=== PATIENT | female | born 1965 | race African-American/Black ===

== ENCOUNTER 2018-04-04 17:38 | Inpatient (IN) | payer MEDICAID ==
[~2018-04-04] VITALS: Ht 170.2 cm; Wt 185.8 kg
[2018-04-04 11:30] VITALS: BP 125/71
[~2018-04-04 17:38] MED LIST: CARI-316; CITA-77; FER325T OR; HYDR-1421; LISI-206; METF-370 PO; TRAZ50TA2 PO
[2018-04-04] MEDS ORDERED: methylPREDNISolone SOD SUCC 125 MG/2 ML VL IV ONE (19:45)
[2018-04-04] MEDS ORDERED: HYDROcodone-ACET 10/325MG TAB PO ONE (19:45)
[2018-04-04] MEDS ORDERED: IPRATROPIUM BROM 0.5 MG/2.5ML INH SOL NEB ONE (19:45)
[2018-04-04] MEDS ORDERED: LORazepam 2MG/ML-1ML VIAL IV ONE (19:45)
[2018-04-04] MEDS ORDERED: ALBUTEROL SULF 2.5 MG/0.5ML(0.5%) NEB SOLN NEB ONE (19:45)
[2018-04-04 19:47] LABS: Basophils # (auto) 0.1 uL; Hemoglobin 12.4 g/dL (12.2-16.2); Lymphocytes # (auto) 1.5 uL; Mean Corpuscular Hemoglobin 23.9 pg (28.0-32.0)
[2018-04-04 19:49] LABS: Basophils % (auto) 1.3 % (0.0-2.0); Eosinophils # (auto) 0.2 uL; Eosinophils % (auto) 2.8 % (0.0-7.0); Lymphocytes % (auto) 23.8 % (10.0-50.0); Mean Corpuscular Volume 77.1 fL (80.0-100.0); Monocytes # (auto) 0.2 uL; Monocytes % (auto) 3.9 % (0.0-12.0); Neutrophils # (auto) 4.2 uL; Neutrophils % (auto) 68.2 % (37.0-80.0); Nucleated Red Blood Cells % 0.1 %; Platelet Count (auto) 287 10^3/uL (140-450); Red Blood Cells 5.18 10^6/uL (4.0-5.20); Red Cell Distribution Width 18.7 % (11.8-14.3); White Blood Cell 6.2 10^3/uL (4.4-10.8)
[2018-04-04 20:04] LABS: Alanine Aminotransferase 19 U/L (13-56); Albumin 3.3 g/dL (3.4-5.0); Alkaline Phosphatase 85 U/L (45-117); Anion Gap 9 (5-15); Aspartate Aminotransferase 13 U/L (15-37); BUN/Creatinine Ratio 11.8; Bilirubin, Total 0.4 mg/dL (0.2-1.0); Blood Urea Nitrogen 10 mg/dL (7-18); Calcium 8.8 mg/dL (8.5-10.1); Carbon Dioxide 26 mmol/L (21-32); Chloride 104 mmol/L (98-107); GFR African American 90 mL/min; GFR Non-African American 75 mL/min; Glucose 153 mg/dL (74-106); Sodium 139 mmol/L (136-145); Total Protein 8.1 g/dL (6.4-8.2)
[2018-04-04] MEDS ORDERED: LEVOFLOXACIN 750MG 150 ML IV ONE (21:00)
[2018-04-04] MEDS ORDERED: IPRATROPIUM BROM 0.5 MG/2.5ML INH SOL NEB PRN (21:30)
[2018-04-04] MEDS ORDERED: DOCUSATE SOD 100 MG CAP PO PRN (21:30)
[2018-04-04] MEDS ORDERED: FUROSEMIDE 20 MG/2 ML VIAL IV ONE (21:30)
[2018-04-04] MEDS ORDERED: ONDANSETRON HCL 4 MG/2 ML VIAL IV PRN (21:30)
[2018-04-04] MEDS ORDERED: ACETAMINOPHEN 325 MG TAB PO PRN (21:30)
[2018-04-04] MEDS ORDERED: ALBUTEROL SULF 2.5 MG/0.5ML(0.5%) NEB SOLN NEB PRN (21:30)
[2018-04-04] MEDS ORDERED: DEXTROSE (50%) 50ML SYRG IV PRN (21:30)
[2018-04-04] MEDS ORDERED: TEMAZEPAM 15 MG CAP PO PRN (21:30)
[2018-04-04] MEDS ORDERED: ENOXAPARIN SOD 40 MG/0.4 ML SYRINGE SC SCH (21:37)
[2018-04-04] MEDS: FAMOTIDINE 20 MG TAB PO SCH (22:00)
[2018-04-05] VITALS (8 sets, daily range): BP systolic 125–170; BP diastolic 71–96
[2018-04-05] MEDS: ACCU-CHEK COMFORT CURVE STRIP VI SCH ×3 (00:18→12:00)
[2018-04-05] MEDS: HYDROcodone-ACET 5/325MG TAB PO PRN ×2 (00:19→05:53)
[2018-04-05] MEDS: InsuLIN REG 1unit/0.01ml Soln (100units/ml) SC SCH ×3 (00:43→12:00)
[2018-04-05] MEDS ORDERED: LORazepam 0.5 MG TAB PO ONE ×3 (02:45→09:15)
[2018-04-05] MEDS: cloNIDine HCL 0.1 MG TAB PO PRN ×2 (05:17→14:20)
[2018-04-05 06:34] LABS: Basophils # (auto) 0 uL; Eosinophils # (auto) 0 uL; Lymphocytes # (auto) 0.4 uL; Monocytes # (auto) 0 uL; Red Cell Distribution Width 18.8 % (11.8-14.3)
[2018-04-05 06:36] LABS: Hematocrit 41.2 % (36.0-46.0); Hemoglobin 12.8 g/dL (12.2-16.2); Lymphocytes % (auto) 8.6 % (10.0-50.0); Mean Corpuscular Hemoglobin 24.1 pg (28.0-32.0); Mean Corpuscular Hgb Conc. 31.2 g/dL (32.0-36.0); Mean Corpuscular Volume 77.4 fL (80.0-100.0); Monocytes % (auto) 0.7 % (0.0-12.0); Neutrophils # (auto) 4.1 uL; Neutrophils % (auto) 89.7 % (37.0-80.0); Nucleated Red Blood Cells % 0.1 %; Platelet Count (auto) 274 10^3/uL (140-450); Red Blood Cells 5.32 10^6/uL (4.0-5.20); White Blood Cell 4.6 10^3/uL (4.4-10.8)
[2018-04-05 07:01] LABS: Potassium 4.3 mmol/L (3.5-5.1)
[2018-04-05 07:16] LABS: Albumin 3.4 g/dL (3.4-5.0); Calcium 9.6 mg/dL (8.5-10.1)
[2018-04-05 07:19] LABS: Bilirubin, Total 0.3 mg/dL (0.2-1.0); Total Protein 8.7 g/dL (6.4-8.2)
[2018-04-05] MEDS ORDERED: OPTISON 3ml Vial for INJ IV ONE (08:45)
[2018-04-05] MEDS ORDERED: ENOXAPARIN SOD 40 MG/0.4 ML SYRINGE SC SCH (10:00)
[2018-04-05] MEDS ORDERED: LISINOPRIL 10 MG TAB PO SCH (10:00)
[2018-04-05] MEDS ORDERED: FUROSEMIDE 40 MG TAB PO SCH (10:00)
[2018-04-05] MEDS ORDERED: CITALOPRAM HYDROBR 20 MG TAB PO SCH (10:00)
[2018-04-05] MEDS ORDERED: LEVOFLOXACIN 750MG 150 ML IV SCH (10:00)
[2018-04-05] MEDS: FAMOTIDINE 20 MG TAB PO SCH (10:17)
[2018-04-05] MEDS ORDERED: LEVO500T21 PO (17:00)
== END 2018-04-05 18:11 | disposition home or self-care (01) | DRG 139 ==
LOC: EDBD 17:38 → ER 17:39 → OVERFLOW 17:40 → WEST WING 22:54
PROVIDERS: ADMIT Nurse Practitioner; ATTEND Internal Medicine
DX: J18.1 Lobar pneumonia, unspecified organism (principal); D68.69 Other thrombophilia; Z68.44 Body mass index [BMI] 60.0-69.9, adult; J44.0 Chronic obstructive pulmonary disease with (acute) lower respiratory infection; I11.0 Hypertensive heart disease with heart failure; I50.32 Chronic diastolic (congestive) heart failure; E66.01 Morbid (severe) obesity due to excess calories; E11.9 Type 2 diabetes mellitus without complications; D50.9 Iron deficiency anemia, unspecified; F32.9 Major depressive disorder, single episode, unspecified; F41.9 Anxiety disorder, unspecified; K44.9 Diaphragmatic hernia without obstruction or gangrene; G47.00 Insomnia, unspecified; K59.00 Constipation, unspecified; J44.1 Chronic obstructive pulmonary disease with (acute) exacerbation; F17.210 Nicotine dependence, cigarettes, uncomplicated; Z80.42 Family history of malignant neoplasm of prostate; Z82.49 Family history of ischemic heart disease and other diseases of the circulatory system; Z83.3 Family history of diabetes mellitus; Z88.5 Allergy status to narcotic agent; Z79.899 Other long term (current) drug therapy
CPT/HCPCS: 36415; 71045; 80053; 82962; 83880; 84484; 85025; 85379; 87040; 87081; 93005; 93306; 94640; 96365; 96375; J1815; J1956; Q9956

== ENCOUNTER 2019-07-23 13:09 | Emergency (ER) | payer MEDICAID ==
[~2019-07-23] VITALS: Ht 170.2 cm; Wt 172.4 kg
[~2019-07-23 13:09] MED LIST changes: +ALBUAER3 IN; -CARI-316; +CARI350T22; +LEVO500T21 PO; -LISI-206; +LISI-710; +PRED-559 PO; +TAMIFLU PO
[2019-07-23 14:04] LABS: Basophils # (auto) 0 uL; Basophils % (auto) 0.4 % (0.0-2.0); Eosinophils # (auto) 0.2 uL; Eosinophils % (auto) 2.2 % (0.0-7.0); Hemoglobin 13.5 g/dL (12.2-16.2); Lymphocytes # (auto) 1.5 uL; Lymphocytes % (auto) 21.4 % (10.0-50.0); Mean Corpuscular Hgb Conc. 32.1 g/dL (32.0-36.0); Mean Corpuscular Volume 84.1 fL (80.0-100.0); Monocytes # (auto) 0.3 uL; Monocytes % (auto) 4.3 % (0.0-12.0); Neutrophils # (auto) 4.9 uL; Neutrophils % (auto) 71.7 % (37.0-80.0); Platelet Count (auto) 217 10^3/uL (140-450); Red Cell Distribution Width 17.2 % (11.8-14.3); White Blood Cell 6.8 10^3/uL (4.4-10.8)
[2019-07-23 14:21] LABS: Alanine Aminotransferase 16 U/L (13-56); Albumin 3.1 g/dL (3.4-5.0); Anion Gap 6 (5-15); Aspartate Aminotransferase 12 U/L (15-37); BUN/Creatinine Ratio 10.6; Blood Urea Nitrogen 9 mg/dL (7-18); Calcium 8.8 mg/dL (8.5-10.1); Carbon Dioxide 27 mmol/L (21-32); Chloride 104 mmol/L (98-107); GFR African American 90 mL/min; GFR Non-African American 74 mL/min; Glucose 171 mg/dL (74-106); Potassium 3.7 mmol/L (3.5-5.1); Sodium 137 mmol/L (136-145)
[2019-07-23 14:26] LABS: Alkaline Phosphatase 74 U/L (45-117); Bilirubin, Total 0.4 mg/dL (0.2-1.0); Total Protein 7.3 g/dL (6.4-8.2)
[2019-07-23] MEDS ORDERED: HYDROmorphone HCL 2 MG/ML VL IV ONE (20:00)
[2019-07-23] MEDS ORDERED: ONDANSETRON HCL 4 MG/2 ML VIAL IV ONE (20:00)
[2019-07-23 20:01] VITALS: BP 135/72
[2019-07-23 20:42] LABS: Urine Bacteria NONE SEEN /hpf (None Seen); Urine Blood Negative /uL (Negative); Urine Mucus FEW (None Seen); Urine Specific Gravity 1.026 (1.001-1.035); Urine WBC 2 /hpf (0 - 5)
== END 2019-07-24 00:04 | disposition home or self-care (01) ==
LOC: ER 13:12
DX: S16.1XXA Strain of muscle, fascia and tendon at neck level, initial encounter (principal); S39.012A Strain of muscle, fascia and tendon of lower back, initial encounter; S00.03XA Contusion of scalp, initial encounter; R07.89 Other chest pain; M19.90 Unspecified osteoarthritis, unspecified site; R42 Dizziness and giddiness; J44.9 Chronic obstructive pulmonary disease, unspecified; E11.9 Type 2 diabetes mellitus without complications; I10 Essential (primary) hypertension; F17.210 Nicotine dependence, cigarettes, uncomplicated; Z91.81 History of falling; W01.0XXA Fall on same level from slipping, tripping and stumbling without subsequent striking against object, initial encounter; Y93.01 Activity, walking, marching and hiking; Y92.89 Other specified places as the place of occurrence of the external cause; Y99.8 Other external cause status
CPT/HCPCS: 36415; 70450; 72125; 72131; 73562; 80053; 81001; 83735; 84484; 85025; 93005; 96374; 96375; 99284; J1170; J2405

== ENCOUNTER 2019-08-30 21:59 | Emergency (ER) | payer MEDICAID ==
[~2019-08-30] VITALS: Ht 170.2 cm; Wt 172.4 kg
[2019-08-31] MEDS ORDERED: LIDOCAINE W/ EPINEPHRINE 2% INJ 20ML VIAL ONE (01:38)
[2019-08-31] MEDS ORDERED: DexAMETHasone SOD PHOS 10MG/1ML VIAL INJ IM ONE (01:45)
[2019-08-31] MEDS ORDERED: cefTRIAXone SOD 1,000 MG VL IM ONE (01:45)
[2019-08-31] MEDS ORDERED: LIDOCAINE W/ EPINEPHRINE 2% INJ 20ML VIAL IJ ONE (01:45)
[2019-08-31] MEDS ORDERED: LORazepam 0.5 MG TAB PO ONE (02:00)
[2019-08-31 02:13] VITALS: BP 104/59
== END 2019-08-31 02:30 | disposition home or self-care (01) ==
LOC: ER 22:03
DX: L02.214 Cutaneous abscess of groin (principal); J44.9 Chronic obstructive pulmonary disease, unspecified; E11.9 Type 2 diabetes mellitus without complications; I10 Essential (primary) hypertension; Z79.899 Other long term (current) drug therapy
CPT/HCPCS: 96372; 99283; J0696; J1100

== ENCOUNTER → 2020-03-15 | Emergency (ER) | payer MEDICAID ==
[~2020-03-15] VITALS: Ht 172.7 cm; Wt 163.3 kg
[~2020-03-15] MED LIST changes: +ALBU0.084 IN; +ALBU108A5 IN; -ALBUAER3 IN; +CARB25TA75 PO; -CARI350T22; -CITA-77; +CLINDAMYCIN 600MG IV 50 ML IV ONE; -FER325T OR; +FUROSEMIDE 20 MG/2 ML VIAL ONE; +FUROSEMIDE 40 MG/4 ML VIAL IV ONE; -HYDR-1421; +INSU1INJ19 SC; +IPR002IS NEB; -LEVO500T21 PO; +LEVO750T2 PO; +LISI-285 PO; -LISI-710; -METF-370 PO; +MORP1TAB14 PO; +NEBUMIS40 XX; +PHEN15CA PO; +PIPERACILLIN-TAZOB 3.375GM 100 ML IV ONE; +POTA-220 PO; +POTASSIUM CHLORIDE 8 MEQ TAB PO ONE; -PRED-559 PO; +PRED20TA2 PO; +SEMA2INJ2 SC; -TAMIFLU PO; +TOPI25TA32 PO; +TRAZ-184 PO; -TRAZ50TA2 PO
[2020-03-15 10:29] LABS: Basophils # (auto) 0.1 10 ^3/uL (0-0.2); Basophils % (auto) 1.3 % (0.0-2.0); Eosinophils # (auto) 0.2 10 ^3/uL (0-0.8); Hematocrit 42.4 % (36.0-46.0); Hemoglobin 13.5 g/dL (12.2-16.2); Lymphocytes % (auto) 20.1 % (10.0-50.0); Mean Corpuscular Hemoglobin 27.4 pg (28.0-32.0); Mean Corpuscular Hgb Conc. 31.8 g/dL (32.0-36.0); Mean Corpuscular Volume 86.2 fL (80.0-100.0); Monocytes # (auto) 0.3 10 ^3/uL (0-1.3); Monocytes % (auto) 4.9 % (0.0-12.0); Neutrophils # (auto) 3.7 10 ^3/uL (1.6-8.6); Neutrophils % (auto) 70.7 % (37.0-80.0); Nucleated Red Blood Cells % 0.1 %; Platelet Count (auto) 236 10^3/uL (140-450); Red Blood Cells 4.92 10^6/uL (4.0-5.20); Red Cell Distribution Width 16.4 % (11.8-14.3); White Blood Cell 5.2 10^3/uL (4.4-10.8)
[2020-03-15 10:50] LABS: Calcium 8.7 mg/dL (8.5-10.1); Potassium 4.4 mmol/L (3.5-5.1)
[2020-03-15 10:53] LABS: BUN/Creatinine Ratio 11.7; Bilirubin, Total 0.4 mg/dL (0.2-1.0); Total Protein 7.5 g/dL (6.4-8.2)
[2020-03-15 12:45] VITALS: BP 131/77
== END | disposition home or self-care (01) ==
LOC: ER 09:42
DX: L03.116 Cellulitis of left lower limb (principal); K44.9 Diaphragmatic hernia without obstruction or gangrene; E46 Unspecified protein-calorie malnutrition; Z68.43 Body mass index [BMI] 50.0-59.9, adult; J44.9 Chronic obstructive pulmonary disease, unspecified; I50.9 Heart failure, unspecified; E11.9 Type 2 diabetes mellitus without complications; I25.10 Atherosclerotic heart disease of native coronary artery without angina pectoris; E78.5 Hyperlipidemia, unspecified; Z87.891 Personal history of nicotine dependence; Z79.2 Long term (current) use of antibiotics; Z79.899 Other long term (current) drug therapy
CPT/HCPCS: 36415; 71045; 80053; 83880; 85025; 93970; 96365; 96366; 96367; 96375; 99285; J1940; J2543; J3490

== ENCOUNTER → 2020-03-23 | Emergency (ER) | payer MEDICAID ==
[~2020-03-23] VITALS: Ht 172.7 cm; Wt 167.8 kg
[~2020-03-23] MED LIST changes: -CARB25TA75 PO; -CLINDAMYCIN 600MG IV 50 ML IV ONE; -FUROSEMIDE 20 MG/2 ML VIAL ONE; -FUROSEMIDE 40 MG/4 ML VIAL IV ONE; -LISI-285 PO; -PIPERACILLIN-TAZOB 3.375GM 100 ML IV ONE; -POTASSIUM CHLORIDE 8 MEQ TAB PO ONE
[2020-03-23 11:48] VITALS: BP 144/70
[2020-03-23 12:38] LABS: Basophils # (auto) 0.1 10 ^3/uL (0-0.2); Eosinophils # (auto) 0.2 10 ^3/uL (0-0.8); Hemoglobin 13.3 g/dL (12.2-16.2); Lymphocytes # (auto) 1.1 10 ^3/uL (0.4-5.4); Mean Corpuscular Hemoglobin 26.9 pg (28.0-32.0); Neutrophils # (auto) 3.1 10 ^3/uL (1.6-8.6)
[2020-03-23 12:39] LABS: Basophils % (auto) 1.4 % (0.0-2.0); Eosinophils % (auto) 3.4 % (0.0-7.0); Hematocrit 42.6 % (36.0-46.0); Lymphocytes % (auto) 23.6 % (10.0-50.0); Mean Corpuscular Hgb Conc. 31.3 g/dL (32.0-36.0); Mean Corpuscular Volume 86.1 fL (80.0-100.0); Monocytes # (auto) 0.2 10 ^3/uL (0-1.3); Monocytes % (auto) 4.7 % (0.0-12.0); Neutrophils % (auto) 66.9 % (37.0-80.0); Platelet Count (auto) 217 10^3/uL (140-450); Red Blood Cells 4.95 10^6/uL (4.0-5.20); Red Cell Distribution Width 16.5 % (11.8-14.3); White Blood Cell 4.6 10^3/uL (4.4-10.8)
[2020-03-23 12:46] LABS: Anion Gap 6 (5-15); Blood Urea Nitrogen 10 mg/dL (7-18); Calcium 8.5 mg/dL (8.5-10.1); Carbon Dioxide 28 mmol/L (21-32); Chloride 106 mmol/L (98-107); Glucose 151 mg/dL (74-106); Potassium 3.9 mmol/L (3.5-5.1); Sodium 140 mmol/L (136-145)
[2020-03-23 12:48] LABS: INR 1.01 (0.9-1.15); Partial Thromboplastin Time 29.8 sec (23.64-32.05)
[2020-03-23 12:52] LABS: Alanine Aminotransferase 18 U/L (13-56); Alkaline Phosphatase 87 U/L (45-117); Aspartate Aminotransferase 11 U/L (15-37); BUN/Creatinine Ratio 11.6; Bilirubin, Total 0.4 mg/dL (0.2-1.0); GFR African American 88 mL/min; GFR Non-African American 73 mL/min; Total Protein 7.2 g/dL (6.4-8.2)
== END | disposition home or self-care (01) ==
LOC: ER 11:22
DX: I50.9 Heart failure, unspecified (principal); D53.9 Nutritional anemia, unspecified; F41.9 Anxiety disorder, unspecified; L03.115 Cellulitis of right lower limb; L03.116 Cellulitis of left lower limb; I25.10 Atherosclerotic heart disease of native coronary artery without angina pectoris; J44.9 Chronic obstructive pulmonary disease, unspecified; E11.9 Type 2 diabetes mellitus without complications; E78.5 Hyperlipidemia, unspecified; Z87.891 Personal history of nicotine dependence; Z88.8 Allergy status to other drugs, medicaments and biological substances; Z79.4 Long term (current) use of insulin; Z79.2 Long term (current) use of antibiotics; Z79.899 Other long term (current) drug therapy
CPT/HCPCS: 36415; 80053; 83880; 84484; 85025; 85379; 85610; 85730

== ENCOUNTER 2020-04-06 08:00 | Emergency (ER) | payer MEDICAID ==
[~2020-04-06] VITALS: Ht 172.7 cm; Wt 174.6 kg
[~2020-04-06 08:00] MED LIST changes: -LEVO750T2 PO; +LEVO750T8 PO
[2020-04-06] MEDS ORDERED: FUROSEMIDE 40 MG/4 ML VIAL IV ONE (08:15)
[2020-04-06 08:44] LABS: Basophils # (auto) 0 10 ^3/uL (0-0.2); Basophils % (auto) 0.4 % (0.0-2.0); Eosinophils # (auto) 0.1 10 ^3/uL (0-0.8); Eosinophils % (auto) 2.8 % (0.0-7.0); Hematocrit 41.6 % (36.0-46.0); Hemoglobin 13.2 g/dL (12.2-16.2); Lymphocytes # (auto) 1.1 10 ^3/uL (0.4-5.4); Lymphocytes % (auto) 20.7 % (10.0-50.0); Mean Corpuscular Hemoglobin 27.3 pg (28.0-32.0); Mean Corpuscular Hgb Conc. 31.9 g/dL (32.0-36.0); Mean Corpuscular Volume 85.7 fL (80.0-100.0); Monocytes # (auto) 0.2 10 ^3/uL (0-1.3); Monocytes % (auto) 4.1 % (0.0-12.0); Neutrophils # (auto) 3.9 10 ^3/uL (1.6-8.6); Platelet Count (auto) 208 10^3/uL (140-450); Red Blood Cells 4.85 10^6/uL (4.0-5.20); Red Cell Distribution Width 16.2 % (11.8-14.3); White Blood Cell 5.4 10^3/uL (4.4-10.8)
[2020-04-06 09:00] LABS: INR 1.01 (0.9-1.15); Partial Thromboplastin Time 29.4 sec (23.64-32.05)
[2020-04-06 09:03] LABS: Albumin 3.2 g/dL (3.4-5.0); Anion Gap 3 (5-15); Blood Urea Nitrogen 12 mg/dL (7-18); Calcium 8.6 mg/dL (8.5-10.1); Carbon Dioxide 29 mmol/L (21-32); Chloride 106 mmol/L (98-107); Glucose 156 mg/dL (74-106); Potassium 3.9 mmol/L (3.5-5.1); Sodium 138 mmol/L (136-145)
[2020-04-06 09:08] LABS: Alanine Aminotransferase 17 U/L (13-56); Alkaline Phosphatase 78 U/L (45-117); Aspartate Aminotransferase 13 U/L (15-37); BUN/Creatinine Ratio 14.6; Bilirubin, Total 0.4 mg/dL (0.2-1.0); GFR African American 93 mL/min; GFR Non-African American 77 mL/min; Total Protein 7.5 g/dL (6.4-8.2)
[2020-04-06] MEDS ORDERED: FLUCONAZOLE 100 MG TAB PO ONE (10:00)
[2020-04-06 10:49] LABS: Urine Bacteria NONE SEEN /hpf (None Seen); Urine Blood Negative /uL (Negative); Urine Specific Gravity 1.007 (1.001-1.035); Urine WBC 1 /hpf (0 - 5)
[2020-04-06] MEDS ORDERED: IBU600T (11:41)
[2020-04-06] MEDS ORDERED: METH500T22 (11:41)
[2020-04-06] MEDS ORDERED: MORP30TA5 (11:41)
[2020-04-06] MEDS ORDERED: PRAM1TAB2 (11:42)
[2020-04-06] MEDS ORDERED: FURO40TA4 (11:42)
[2020-04-06] MEDS ORDERED: POTA1TAB4 (11:42)
[2020-04-06] MEDS ORDERED: SPIR100T4 (11:42)
[2020-04-06] MEDS ORDERED: IOHEXOL 350 MG/ML 100ML IJ ONE ×2 (12:46→13:30)
[2020-04-06 13:52] VITALS: BP 147/75
[2020-04-06 14:26] LABS: Cholesterol 193 mg/dL (< 200); HDL Cholesterol 77 mg/dL (40-59); LDL Cholesterol 101 mg/dL (< 100); Triglycerides 163 mg/dL (< 150)
[2020-04-06] MEDS ORDERED: FUROSEMIDE 40 MG/4 ML VIAL IV SCH (18:00)
[2020-04-06] MEDS ORDERED: ATORVASTATIN 20 MG TAB PO SCH (22:00)
[2020-04-06] MEDS ORDERED: METOPROLOL TARTRATE 25 MG TAB PO SCH (22:00)
[2020-04-07] MEDS ORDERED: amLODIPine BESYLATE 5 MG TAB PO SCH (10:00)
[2020-04-07] MEDS ORDERED: ASPirin 81 mg TAB PO SCH (10:00)
== END 2020-04-06 18:13 | disposition home or self-care (01) ==
LOC: ER 08:00
DX: E11.65 Type 2 diabetes mellitus with hyperglycemia (principal); E66.01 Morbid (severe) obesity due to excess calories; K44.9 Diaphragmatic hernia without obstruction or gangrene; G89.4 Chronic pain syndrome; D53.9 Nutritional anemia, unspecified; F41.9 Anxiety disorder, unspecified; R79.89 Other specified abnormal findings of blood chemistry; I50.9 Heart failure, unspecified; I25.10 Atherosclerotic heart disease of native coronary artery without angina pectoris; J44.9 Chronic obstructive pulmonary disease, unspecified; E78.5 Hyperlipidemia, unspecified
CPT/HCPCS: 36415; 71045; 71275; 80053; 80061; 81001; 83036; 83880; 84443; 84484; 85025; 85379; 85610; 85730; 93005; 93970; 96374; 99285; J1940; Q9967

== ENCOUNTER → 2020-04-15 | Emergency (ER) | payer MEDICAID ==
[~2020-04-15] VITALS: Ht 172.7 cm; Wt 172.4 kg
[~2020-04-15] MED LIST changes: +AZITHROMYCIN 250 MG TAB PO ONE; +AZITHROMYCIN 500MG/ 250ML 250 ML IV ONE; +FURO40TA4; +HYDROmorphone HCL 2 MG/ML VL IM ONE; +IBU600T; +KETOROLAC TROMETH 30 MG/ML 1ML VIAL IV ONE; +LEVO500T21 PO; +LEVO750T2 PO; -LEVO750T8 PO; +METH500T22; +MORP30TA5; +ONDANSETRON HCL 4 MG/2 ML VIAL IV ONE; +ONDANSETRON HCL 4 MG/2 ML VIAL ONE; +ONDANSETRON ODT 4 MG TAB PO ONE; +POTA1TAB4; +PRAM1TAB2; +SPIR100T4; +cefTRIAXone 1GM/50ML D5W 50 ML IV ONE; +cefTRIAXone W LIDOCAINE 1 GM IM IM ONE
[2020-04-15 07:02] LABS: Basophils # (auto) 0.1 10 ^3/uL (0-0.2); Basophils % (auto) 1.4 % (0.0-2.0); Eosinophils # (auto) 0.1 10 ^3/uL (0-0.8); Eosinophils % (auto) 2.3 % (0.0-7.0); Hematocrit 41.1 % (36.0-46.0); Hemoglobin 13.3 g/dL (12.2-16.2); Lymphocytes # (auto) 1.1 10 ^3/uL (0.4-5.4); Lymphocytes % (auto) 17.5 % (10.0-50.0); Mean Corpuscular Hemoglobin 27.6 pg (28.0-32.0); Mean Corpuscular Hgb Conc. 32.3 g/dL (32.0-36.0); Mean Corpuscular Volume 85.3 fL (80.0-100.0); Monocytes # (auto) 0.4 10 ^3/uL (0-1.3); Neutrophils # (auto) 4.5 10 ^3/uL (1.6-8.6); Neutrophils % (auto) 72.8 % (37.0-80.0); Nucleated Red Blood Cells % 0.2 %; Platelet Count (auto) 263 10^3/uL (140-450); Red Blood Cells 4.82 10^6/uL (4.0-5.20); Red Cell Distribution Width 16.3 % (11.8-14.3); White Blood Cell 6.2 10^3/uL (4.4-10.8)
[2020-04-15 07:14] LABS: INR 1.01 (0.9-1.15); Partial Thromboplastin Time 30.5 sec (23.64-32.05)
[2020-04-15 07:15] LABS: Albumin 3.2 g/dL (3.4-5.0); Anion Gap 4 (5-15); Blood Urea Nitrogen 10 mg/dL (7-18); Calcium 8.8 mg/dL (8.5-10.1); Carbon Dioxide 30 mmol/L (21-32); Chloride 104 mmol/L (98-107); Glucose 167 mg/dL (74-106); Potassium 4.1 mmol/L (3.5-5.1); Sodium 138 mmol/L (136-145)
[2020-04-15 07:21] LABS: Alanine Aminotransferase 18 U/L (13-56); Alkaline Phosphatase 80 U/L (45-117); Aspartate Aminotransferase 13 U/L (15-37); BUN/Creatinine Ratio 11.2; Bilirubin, Total 0.4 mg/dL (0.2-1.0); GFR African American 85 mL/min; GFR Non-African American 70 mL/min; Total Protein 7.6 g/dL (6.4-8.2)
[2020-04-15 07:51] VITALS: BP 147/86
[2020-04-15 07:58] LABS: Urine Bacteria NONE SEEN /hpf (None Seen); Urine Blood 3+ /uL (Negative); Urine Specific Gravity 1.018 (1.001-1.035); Urine WBC 1315 /hpf (0 - 5); Urine WBC Clumps PRESENT /hpf (None Seen)
== END | disposition home or self-care (01) ==
LOC: ER 06:12
DX: N39.0 Urinary tract infection, site not specified (principal); I11.0 Hypertensive heart disease with heart failure; I50.9 Heart failure, unspecified; J44.0 Chronic obstructive pulmonary disease with (acute) lower respiratory infection; J18.9 Pneumonia, unspecified organism; E11.65 Type 2 diabetes mellitus with hyperglycemia; E66.01 Morbid (severe) obesity due to excess calories; E44.1 Mild protein-calorie malnutrition; E78.5 Hyperlipidemia, unspecified; Z88.8 Allergy status to other drugs, medicaments and biological substances
CPT/HCPCS: 36415; 71045; 80053; 81001; 83880; 84484; 85025; 85610; 85730; 93005; 96365; 96368; 96372; 96375; 99285; J0456; J0696; J1170; J1885; J2405

== ENCOUNTER 2020-04-16 19:22 | Inpatient (IN) | payer MEDICAID ==
[~2020-04-16] VITALS: Ht 167.6 cm; Wt 166.9 kg
[~2020-04-16 19:22] MED LIST changes: -AZITHROMYCIN 250 MG TAB PO ONE; -AZITHROMYCIN 500MG/ 250ML 250 ML IV ONE; -HYDROmorphone HCL 2 MG/ML VL IM ONE; -KETOROLAC TROMETH 30 MG/ML 1ML VIAL IV ONE; -LEVO500T21 PO; -ONDANSETRON HCL 4 MG/2 ML VIAL IV ONE; -ONDANSETRON HCL 4 MG/2 ML VIAL ONE; -ONDANSETRON ODT 4 MG TAB PO ONE; -cefTRIAXone 1GM/50ML D5W 50 ML IV ONE; -cefTRIAXone W LIDOCAINE 1 GM IM IM ONE
[2020-04-16 21:26] LABS: Basophils # (auto) 0 10 ^3/uL (0-0.2); Eosinophils # (auto) 0.1 10 ^3/uL (0-0.8); Eosinophils % (auto) 2.5 % (0.0-7.0); Hematocrit 42.5 % (36.0-46.0); Lymphocytes # (auto) 1.3 10 ^3/uL (0.4-5.4); Monocytes # (auto) 0.3 10 ^3/uL (0-1.3)
[2020-04-16 21:28] LABS: Basophils % (auto) 0.3 % (0.0-2.0); Hemoglobin 13.4 g/dL (12.2-16.2); Lymphocytes % (auto) 23.3 % (10.0-50.0); Mean Corpuscular Hemoglobin 27.1 pg (28.0-32.0); Mean Corpuscular Hgb Conc. 31.5 g/dL (32.0-36.0); Mean Corpuscular Volume 86.1 fL (80.0-100.0); Neutrophils # (auto) 3.9 10 ^3/uL (1.6-8.6); Neutrophils % (auto) 68.9 % (37.0-80.0); Platelet Count (auto) 227 10^3/uL (140-450); Red Blood Cells 4.94 10^6/uL (4.0-5.20); Red Cell Distribution Width 16.2 % (11.8-14.3); White Blood Cell 5.6 10^3/uL (4.4-10.8)
[2020-04-16 21:34] LABS: INR 1.02 (0.9-1.15); Partial Thromboplastin Time 30.9 sec (23.64-32.05)
[2020-04-16 21:36] LABS: Albumin 3.2 g/dL (3.4-5.0); Calcium 8.9 mg/dL (8.5-10.1); Potassium 4.4 mmol/L (3.5-5.1)
[2020-04-16 21:40] LABS: BUN/Creatinine Ratio 13.3; Bilirubin, Total 0.2 mg/dL (0.2-1.0); Total Protein 7.5 g/dL (6.4-8.2)
[2020-04-16 23:16] LABS: Urine Bacteria FEW /hpf (None Seen); Urine Blood Negative /uL (Negative); Urine Hyaline Cast FEW /lpf (0 - 2); Urine Specific Gravity 1.018 (1.001-1.035); Urine WBC 7 /hpf (0 - 5)
[2020-04-17] MEDS ORDERED: cefTRIAXone 1GM/50ML D5W 50 ML IV ONE (00:30)
[2020-04-17] MEDS ORDERED: AZITHROMYCIN 500MG/ 250ML 250 ML IV ONE (00:30)
[2020-04-17] MEDS ORDERED: SODIUM CHLORIDE 0.9% 1,000 ML IV SCH (01:14)
[2020-04-17] MEDS ORDERED: ACETAMINOPHEN 325 MG TAB PO PRN (01:15)
[2020-04-17] MEDS ORDERED: MORPHINE SULF INJ 2 MG/ML SYRINGE 1ML IV PRN (01:15)
[2020-04-17] MEDS ORDERED: DEXTROSE (50%) 50ML SYRG IV PRN (01:15)
[2020-04-17] MEDS ORDERED: IPRATROPIUM BROM 0.5 MG/2.5ML INH SOL NEB PRN (01:15)
[2020-04-17] MEDS ORDERED: HYDROcodone-ACET 5/325MG TAB PO PRN (01:15)
[2020-04-17] MEDS ORDERED: ONDANSETRON HCL 4 MG/2 ML VIAL IV PRN (01:15)
[2020-04-17] MEDS ORDERED: DOCUSATE SOD 100 MG CAP PO PRN (01:15)
[2020-04-17] MEDS ORDERED: MORPHINE SULF 30 mg ER tab PO PRN (01:15)
[2020-04-17] MEDS ORDERED: IBUPROFEN 600 MG TAB PO PRN (01:41)
[2020-04-17 01:59] VITALS: BP 146/70
[2020-04-17 03:00] VITALS: BP 142/70
[2020-04-17] MEDS: ACCU-CHEK COMFORT CURVE STRIP VI SCH ×3 (04:00→11:33)
[2020-04-17] MEDS: InsuLIN REG 1unit/0.01ml Soln (100units/ml) SC SCH ×3 (04:23→11:35)
[2020-04-17 05:44] VITALS: BP 151/70
[2020-04-17] MEDS: IPRATROPIUM BROM 0.5 MG/2.5ML INH SOL NEB SCH ×2 (06:19→11:46)
[2020-04-17] MEDS: ALBUTEROL SULF 2.5 MG/0.5ML(0.5%) NEB SOLN NEB PRN ×2 (06:20→11:46)
[2020-04-17 09:01] VITALS: BP 118/79
[2020-04-17] MEDS ORDERED: FUROSEMIDE 40 MG TAB PO SCH (10:00)
[2020-04-17] MEDS ORDERED: POTASSIUM CHL 20 Meq TABLET PO SCH (10:00)
[2020-04-17] MEDS ORDERED: METHOCARBAMOL 500 MG TAB PO SCH (10:00)
[2020-04-17] MEDS ORDERED: TOPIRAMATE 25 MG TAB PO SCH (10:00)
[2020-04-17 10:25] LABS: Basophils # (auto) 0 10 ^3/uL (0-0.2); Basophils % (auto) 0.6 % (0.0-2.0); Eosinophils # (auto) 0.2 10 ^3/uL (0-0.8); Eosinophils % (auto) 3.1 % (0.0-7.0); Hematocrit 40.9 % (36.0-46.0); Lymphocytes # (auto) 1.1 10 ^3/uL (0.4-5.4); Lymphocytes % (auto) 21.9 % (10.0-50.0); Mean Corpuscular Hemoglobin 27.3 pg (28.0-32.0); Mean Corpuscular Hgb Conc. 31.8 g/dL (32.0-36.0); Mean Corpuscular Volume 85.8 fL (80.0-100.0); Monocytes # (auto) 0.3 10 ^3/uL (0-1.3); Monocytes % (auto) 6.1 % (0.0-12.0); Neutrophils # (auto) 3.3 10 ^3/uL (1.6-8.6); Neutrophils % (auto) 68.3 % (37.0-80.0); Nucleated Red Blood Cells % 0.1 %; Platelet Count (auto) 243 10^3/uL (140-450); Red Blood Cells 4.77 10^6/uL (4.0-5.20); Red Cell Distribution Width 16.8 % (11.8-14.3); White Blood Cell 4.9 10^3/uL (4.4-10.8)
[2020-04-17 10:41] LABS: Calcium 8.6 mg/dL (8.5-10.1); Potassium 4.3 mmol/L (3.5-5.1)
[2020-04-17] MEDS ORDERED: predniSONE 20 MG TAB PO ONE (11:00)
[2020-04-17] MEDS ORDERED: PRED20TA2 PO (11:09)
[2020-04-17] MEDS ORDERED: LEVO500T21 PO (11:09)
[2020-04-17 12:00] VITALS: BP 147/65
[2020-04-17] MEDS ORDERED: IOHEXOL 350 MG/ML 100ML IJ ONE (12:24)
[2020-04-17 12:43] VITALS: BP_SYST 147; BP_SYST 161; BP_DIAS 65; BP_DIAS 66
[2020-04-17] MEDS ORDERED: cefTRIAXone 1GM/50ML D5W 50 ML IV SCH (21:00)
[2020-04-17] MEDS ORDERED: traZODone HCL 50 MG TAB PO SCH (22:00)
== END 2020-04-17 14:19 | disposition home health service (06) | DRG 140 ==
LOC: ER 19:22 → WEST WING 19:23
PROVIDERS: ADMIT Hospitalist; ATTEND Hospitalist
DX: J44.1 Chronic obstructive pulmonary disease with (acute) exacerbation (principal); J18.9 Pneumonia, unspecified organism; J96.10 Chronic respiratory failure, unspecified whether with hypoxia or hypercapnia; I50.32 Chronic diastolic (congestive) heart failure; Z99.81 Dependence on supplemental oxygen; E66.01 Morbid (severe) obesity due to excess calories; J44.0 Chronic obstructive pulmonary disease with (acute) lower respiratory infection; E78.5 Hyperlipidemia, unspecified; N39.0 Urinary tract infection, site not specified; F32.9 Major depressive disorder, single episode, unspecified; E11.9 Type 2 diabetes mellitus without complications; F41.9 Anxiety disorder, unspecified; Z83.3 Family history of diabetes mellitus; Z82.49 Family history of ischemic heart disease and other diseases of the circulatory system; Z68.43 Body mass index [BMI] 50.0-59.9, adult; Z87.891 Personal history of nicotine dependence; Z03.818 Encounter for observation for suspected exposure to other biological agents ruled out
CPT/HCPCS: 36415; 71045; 71275; 80048; 80053; 80061; 80320; 81001; 82728; 82962; 83036; 83605; 83880; 84702; 85025; 85379; 85610; 85730; 87070; 87081; 87804; 87880; 93005; 93971; 94640; G0378; J0696; J1815

== ENCOUNTER 2020-04-26 05:19 | Emergency (ER) | payer MEDICAID ==
[~2020-04-26] VITALS: Ht 172.7 cm; Wt 167.8 kg
[~2020-04-26 05:19] MED LIST changes: +LEVO500T21 PO; -LEVO750T2 PO; -POTA1TAB4
[2020-04-26 07:22] VITALS: BP 145/80
[2020-04-26 07:44] LABS: Urine Amorphous Crystal FEW /hpf (None Seen); Urine Blood 2+ /uL (Negative); Urine Specific Gravity 1.016 (1.001-1.035); Urine WBC 207 /hpf (0 - 5); Urine WBC Clumps PRESENT /hpf (None Seen)
[2020-04-26 07:45] LABS: Urine Bacteria FEW /hpf (None Seen)
[2020-04-26] MEDS ORDERED: cefTRIAXone SOD 1,000 MG VL IM ONE (08:00)
[2020-04-26] MEDS ORDERED: LIDOCAINE 1% HCL (LOCAL ANESTH.) INJ 20ML MDV ONE (08:11)
== END 2020-04-26 08:24 | disposition home or self-care (01) ==
LOC: ER 05:19
DX: N39.0 Urinary tract infection, site not specified (principal); I50.9 Heart failure, unspecified; J44.9 Chronic obstructive pulmonary disease, unspecified; E11.9 Type 2 diabetes mellitus without complications; F17.210 Nicotine dependence, cigarettes, uncomplicated; Z88.8 Allergy status to other drugs, medicaments and biological substances
CPT/HCPCS: 81001; 96372; 99283; J0696; J2001

== ENCOUNTER 2020-05-28 14:38 | Emergency (ER) | payer MEDICAID ==
[~2020-05-28] VITALS: Ht 172.7 cm; Wt 166.9 kg
[2020-05-28] MEDS ORDERED: CLINDAMYCIN 600 MG/4 ML VL IM ONE (15:30)
[2020-05-28] MEDS ORDERED: HYDROcodone-ACET 7.5/325MG TAB PO ONE (15:30)
[2020-05-28] MEDS ORDERED: ONDANSETRON ODT 4 MG TAB PO ONE (15:30)
[2020-05-28] MEDS ORDERED: CLINDAMYCIN HCL 150 MG CAP PO ONE (16:45)
[2020-05-28 18:18] LABS: Basophils # (auto) 0.1 10 ^3/uL (0-0.2); Basophils % (auto) 1.3 % (0.0-2.0); Eosinophils # (auto) 0.1 10 ^3/uL (0-0.8); Eosinophils % (auto) 2.3 % (0.0-7.0); Hematocrit 42.6 % (36.0-46.0); Hemoglobin 13.7 g/dL (12.2-16.2); Lymphocytes # (auto) 1.2 10 ^3/uL (0.4-5.4); Lymphocytes % (auto) 24.3 % (10.0-50.0); Mean Corpuscular Hemoglobin 27.3 pg (28.0-32.0); Mean Corpuscular Hgb Conc. 32.2 g/dL (32.0-36.0); Mean Corpuscular Volume 84.7 fL (80.0-100.0); Monocytes # (auto) 0.3 10 ^3/uL (0-1.3); Monocytes % (auto) 5.8 % (0.0-12.0); Neutrophils # (auto) 3.4 10 ^3/uL (1.6-8.6); Neutrophils % (auto) 66.3 % (37.0-80.0); Nucleated Red Blood Cells % 0.1 %; Platelet Count (auto) 211 10^3/uL (140-450); Red Blood Cells 5.03 10^6/uL (4.0-5.20); Red Cell Distribution Width 16.5 % (11.8-14.3); White Blood Cell 5.1 10^3/uL (4.4-10.8)
[2020-05-28 18:29] LABS: Partial Thromboplastin Time 29.3 sec (23.64-32.05)
[2020-05-28 18:39] LABS: Albumin 3.3 g/dL (3.4-5.0); Calcium 8.7 mg/dL (8.5-10.1); Potassium 4.1 mmol/L (3.5-5.1)
[2020-05-28 18:42] LABS: BUN/Creatinine Ratio 11.3; Bilirubin, Total 0.3 mg/dL (0.2-1.0); Total Protein 6.9 g/dL (6.4-8.2)
[2020-05-28 19:05] VITALS: BP 145/85
== END 2020-05-28 19:24 | disposition home or self-care (01) ==
LOC: ER 14:38
DX: L03.116 Cellulitis of left lower limb (principal); L03.115 Cellulitis of right lower limb; J44.9 Chronic obstructive pulmonary disease, unspecified; E11.9 Type 2 diabetes mellitus without complications; E78.5 Hyperlipidemia, unspecified; I50.9 Heart failure, unspecified; Z88.8 Allergy status to other drugs, medicaments and biological substances
CPT/HCPCS: 36415; 80053; 83880; 84484; 85025; 85610; 85730; 93970; 99284; Q0162

== ENCOUNTER → 2020-06-20 | Emergency (ER) | payer MEDICAID ==
[~2020-06-20] VITALS: Ht 170.2 cm; Wt 167.8 kg
[2020-06-20 14:44] VITALS: BP 135/61
[2020-06-20 15:34] LABS: Basophils # (auto) 0.1 10 ^3/uL (0-0.2); Basophils % (auto) 1.3 % (0.0-2.0); Eosinophils # (auto) 0 10 ^3/uL (0-0.8); Nucleated Red Blood Cells % 0.1 %
[2020-06-20 15:36] LABS: Eosinophils % (auto) 0.6 % (0.0-7.0); Hematocrit 44.6 % (36.0-46.0); Hemoglobin 14.1 g/dL (12.2-16.2); Lymphocytes # (auto) 0.6 10 ^3/uL (0.4-5.4); Mean Corpuscular Hemoglobin 26.9 pg (28.0-32.0); Mean Corpuscular Hgb Conc. 31.6 g/dL (32.0-36.0); Mean Corpuscular Volume 85.1 fL (80.0-100.0); Monocytes # (auto) 0.3 10 ^3/uL (0-1.3); Monocytes % (auto) 6.5 % (0.0-12.0); Neutrophils # (auto) 3.1 10 ^3/uL (1.6-8.6); Neutrophils % (auto) 77.6 % (37.0-80.0); Platelet Count (auto) 237 10^3/uL (140-450); Red Blood Cells 5.24 10^6/uL (4.0-5.20); Red Cell Distribution Width 16.9 % (11.8-14.3); White Blood Cell 3.9 10^3/uL (4.4-10.8)
[2020-06-20 16:01] LABS: Albumin 3.3 g/dL (3.4-5.0); BUN/Creatinine Ratio 14.6; Calcium 8.7 mg/dL (8.5-10.1); Potassium 3.9 mmol/L (3.5-5.1)
[2020-06-20 16:04] LABS: Bilirubin, Total 0.3 mg/dL (0.2-1.0); Total Protein 8.1 g/dL (6.4-8.2)
== END | disposition left against medical advice (07) ==
LOC: ER 14:01
DX: R06.02 Shortness of breath (principal); Z53.21 Procedure and treatment not carried out due to patient leaving prior to being seen by health care provider
CPT/HCPCS: 36415; 71045; 80053; 83880; 85025

== ENCOUNTER 2020-08-14 12:38 | Inpatient (IN) | payer MEDICAID ==
[~2020-08-14] VITALS: Ht 170.2 cm; Wt 145.5 kg
[2020-08-14] MEDS ORDERED: SODIUM CHLORIDE 0.9% 1,000 ML IV ONE (14:00)
[2020-08-14 14:13] LABS: Basophils # (auto) 0.1 10 ^3/uL (0-0.2); Basophils % (auto) 1.2 % (0.0-2.0); Eosinophils # (auto) 0.1 10 ^3/uL (0-0.8); Hematocrit 41.3 % (36.0-46.0); Hemoglobin 13.4 g/dL (12.2-16.2); Lymphocytes # (auto) 1.5 10 ^3/uL (0.4-5.4); Lymphocytes % (auto) 26.9 % (10.0-50.0); Mean Corpuscular Hemoglobin 28.4 pg (28.0-32.0); Mean Corpuscular Hgb Conc. 32.5 g/dL (32.0-36.0); Mean Corpuscular Volume 87.4 fL (80.0-100.0); Monocytes # (auto) 0.3 10 ^3/uL (0-1.3); Monocytes % (auto) 4.8 % (0.0-12.0); Neutrophils # (auto) 3.7 10 ^3/uL (1.6-8.6); Neutrophils % (auto) 65.1 % (37.0-80.0); Nucleated Red Blood Cells % 0.2 %; Platelet Count (auto) 260 10^3/uL (140-450); Red Blood Cells 4.73 10^6/uL (4.0-5.20); Red Cell Distribution Width 19.9 % (11.8-14.3); White Blood Cell 5.7 10^3/uL (4.4-10.8)
[2020-08-14 14:29] LABS: Albumin 3.4 g/dL (3.4-5.0); Calcium 9.2 mg/dL (8.5-10.1); Potassium 4.1 mmol/L (3.5-5.1)
[2020-08-14 14:35] LABS: BUN/Creatinine Ratio 9.2; Bilirubin, Total 0.5 mg/dL (0.2-1.0); Total Protein 7.4 g/dL (6.4-8.2)
[2020-08-14 14:48] LABS: Magnesium 1.8 mg/dL (1.6-2.6)
[2020-08-14 17:09] LABS: Urine Bacteria NONE SEEN /hpf (None Seen); Urine Blood Negative /uL (Negative); Urine Mucus FEW (None Seen); Urine Specific Gravity 1.029 (1.001-1.035); Urine WBC 3 /hpf (0 - 5)
[2020-08-14] MEDS ORDERED: cefTRIAXone 1GM/50ML D5W 50 ML IV ONE (18:00)
[2020-08-14] MEDS ORDERED: FUROSEMIDE 40 MG/4 ML VIAL IV ONE ×2 (18:00→21:45)
[2020-08-14] MEDS ORDERED: SPIRONOLACTONE 25 MG TAB PO ONE (18:00)
[2020-08-14] MEDS ORDERED: NITROGLYCERIN 0.4 MG SL TAB SL PRN ×2 (18:30→21:45)
[2020-08-14] MEDS ORDERED: MORPHINE SULF INJ 2 MG/ML SYRINGE 1ML IV PRN ×3 (18:30→21:45)
[2020-08-14 20:10] VITALS: BP 152/81
[2020-08-14] MEDS ORDERED: PERCOT PO (21:07)
[2020-08-14 21:15] VITALS: BP 152/81
[2020-08-14] MEDS ORDERED: LORazepam 0.5 MG TAB PO PRN (21:45)
[2020-08-14] MEDS ORDERED: ALUM & MAG HYDROX-SIMETH LIQ(MAALOX) 30 ML PO PRN (21:45)
[2020-08-14] MEDS ORDERED: ONDANSETRON HCL 4 MG/2 ML VIAL IV PRN (21:45)
[2020-08-14] MEDS ORDERED: HYDROcodone-ACET 5/325MG TAB PO PRN (21:45)
[2020-08-14] MEDS ORDERED: ALBUTEROL SULF 2.5 MG/0.5ML(0.5%) NEB SOLN NEB PRN (21:45)
[2020-08-14] MEDS ORDERED: DEXTROSE (50%) 50ML SYRG IV PRN (21:45)
[2020-08-14] MEDS ORDERED: DOCUSATE SOD 100 MG CAP PO PRN (21:45)
[2020-08-14] MEDS ORDERED: ACETAMINOPHEN 325 MG TAB PO PRN (21:45)
[2020-08-14] MEDS: TOPIRAMATE 25 MG TAB PO SCH (22:00)
[2020-08-14] MEDS ORDERED: traZODone HCL 50 MG TAB PO SCH (22:00)
[2020-08-14] MEDS ORDERED: ATORVASTATIN 20 MG TAB PO SCH (22:00)
[2020-08-14] MEDS: FAMOTIDINE (10MG/ML) 2ML VL IV SCH (22:23)
[2020-08-14] MEDS: busPIRone HCL 10 MG TAB PO SCH (22:24)
[2020-08-14] MEDS: methylPREDNISolone SOD SUCC 40 MG/ML VL IV SCH (22:24)
[2020-08-14] MEDS: IPRATROPIUM BROM 0.5 MG/2.5ML INH SOL NEB SCH (22:37)
[2020-08-14] MEDS: SODIUM CHLOR 0.9% PF (SALINE LOCK) 10ML VIAL/SYR IV SCH (23:05)
[2020-08-14] MEDS ORDERED: BUSP5TAB51 PO (23:40)
[2020-08-14] MEDS ORDERED: FURO40TA4 PO (23:42)
[2020-08-14 23:55] LABS: Cholesterol 187 mg/dL (< 200); HDL Cholesterol 76 mg/dL (40-59); LDL Cholesterol 100 mg/dL (< 100); Triglycerides 257 mg/dL (< 150)
[2020-08-15] MEDS: ACCU-CHEK COMFORT CURVE STRIP VI SCH ×4 (00:04→17:54)
[2020-08-15] MEDS: InsuLIN REG 1unit/0.01ml Soln (100units/ml) SC SCH ×4 (00:10→17:56)
[2020-08-15] MEDS: IPRATROPIUM BROM 0.5 MG/2.5ML INH SOL NEB SCH ×5 (01:37→18:26)
[2020-08-15 04:39] VITALS: BP 149/85
[2020-08-15] MEDS: FUROSEMIDE 40 MG/4 ML VIAL IV SCH ×2 (05:26→17:54)
[2020-08-15] MEDS: methylPREDNISolone SOD SUCC 40 MG/ML VL IV SCH ×2 (05:26→14:56)
[2020-08-15] MEDS: SODIUM CHLOR 0.9% PF (SALINE LOCK) 10ML VIAL/SYR IV SCH ×2 (05:26→14:00)
[2020-08-15 08:00] VITALS: BP 140/78
[2020-08-15 08:29] LABS: Amphetamine Screen, Urine NEGATIVE (NEGATIVE); Barbiturate Scree,Urine NEGATIVE (NEGATIVE); Benzodiazephine Screen, Urine NEGATIVE (NEGATIVE); Cannabinoid Screen, Urine NEGATIVE (NEGATIVE); Cocaine Screen, Urine NEGATIVE (NEGATIVE); Opiate Scree,Urine NEGATIVE (NEGATIVE); Phencyclidine Screen, Urine NEGATIVE (NEGATIVE)
[2020-08-15 09:34] VITALS: BP 140/78
[2020-08-15] MEDS: FAMOTIDINE (10MG/ML) 2ML VL IV SCH (09:53)
[2020-08-15] MEDS: TOPIRAMATE 25 MG TAB PO SCH (09:54)
[2020-08-15] MEDS: busPIRone HCL 10 MG TAB PO SCH (09:54)
[2020-08-15] MEDS ORDERED: ASPirin 81 mg TAB PO SCH (10:00)
[2020-08-15] MEDS ORDERED: levoFLOXacin 500MG 100 ML IV SCH (10:00)
[2020-08-15] MEDS ORDERED: METHOCARBAMOL 500 MG TAB PO SCH (10:00)
[2020-08-15 12:00] VITALS: BP 157/73
[2020-08-15 17:00] VITALS: BP 139/99
[2020-08-15] MEDS ORDERED: PRED20TA2 PO (19:10)
[2020-08-15] MEDS ORDERED: LEVO500T21 PO (19:10)
[2020-08-15] MEDS ORDERED: ALBUAER3 IN (19:10)
[2020-08-15] MEDS ORDERED: FURO1TAB31 PO (19:10)
[2020-08-15] MEDS ORDERED: IPRIH IN (19:10)
== END 2020-08-15 23:00 | disposition home health service (06) | DRG 194 ==
LOC: ER 12:38 → TELE 12:39 → TELE-EAST 20:15
PROVIDERS: ADMIT Hospitalist; ATTEND Hospitalist
DX: I11.0 Hypertensive heart disease with heart failure (principal); J44.1 Chronic obstructive pulmonary disease with (acute) exacerbation; J96.10 Chronic respiratory failure, unspecified whether with hypoxia or hypercapnia; E44.1 Mild protein-calorie malnutrition; Z68.43 Body mass index [BMI] 50.0-59.9, adult; E66.2 Morbid (severe) obesity with alveolar hypoventilation; Z20.828 Contact with and (suspected) exposure to other viral communicable diseases; E78.5 Hyperlipidemia, unspecified; F32.9 Major depressive disorder, single episode, unspecified; F41.9 Anxiety disorder, unspecified; G25.81 Restless legs syndrome; I50.33 Acute on chronic diastolic (congestive) heart failure; I87.2 Venous insufficiency (chronic) (peripheral); L03.115 Cellulitis of right lower limb; E11.65 Type 2 diabetes mellitus with hyperglycemia; L03.116 Cellulitis of left lower limb; Z79.4 Long term (current) use of insulin; Z82.49 Family history of ischemic heart disease and other diseases of the circulatory system; Z83.3 Family history of diabetes mellitus; Z87.891 Personal history of nicotine dependence; Z79.899 Other long term (current) drug therapy; Z86.19 Personal history of other infectious and parasitic diseases
CPT/HCPCS: 36415; 71045; 80053; 80061; 80307; 81001; 82962; 83036; 83735; 83880; 84443; 84484; 85025; 87040; 87086; 87426; 94640; 96365; 96375; G0378; J0696; J1815; J1956; J3490

== ENCOUNTER 2021-04-13 07:26 | Emergency (ER) | payer MEDICAID ==
[~2021-04-13] VITALS: Ht 170.2 cm; Wt 154.2 kg
[~2021-04-13 07:26] MED LIST changes: -ALBU0.084 IN; +ALBUAER3 IN; +BUSP5TAB51 PO; +FURO1TAB31 PO; -FURO40TA4; -IBU600T; -IPR002IS NEB; +IPRIH IN; -LEVO500T21 PO; +LEVO500T31 PO; -MORP30TA5; -NEBUMIS40 XX; +PERCOT PO; -PHEN15CA PO; -PRAM1TAB2; -SEMA2INJ2 SC; -SPIR100T4; -TOPI25TA32 PO
[2021-04-13 08:02] LABS: Basophils # (auto) 0.2 10 ^3/uL (0-0.2); Basophils % (auto) 3.1 % (0.0-2.0); Eosinophils # (auto) 0.2 10 ^3/uL (0-0.8); Eosinophils % (auto) 2.8 % (0.0-7.0); Hematocrit 42.6 % (36.0-46.0); Hemoglobin 13.7 g/dL (12.2-16.2); Lymphocytes # (auto) 1.4 10 ^3/uL (0.4-5.4); Lymphocytes % (auto) 25.1 % (10.0-50.0); Mean Corpuscular Hemoglobin 27.5 pg (28.0-32.0); Mean Corpuscular Hgb Conc. 32.2 g/dL (32.0-36.0); Mean Corpuscular Volume 85.4 fL (80.0-100.0); Monocytes # (auto) 0.2 10 ^3/uL (0-1.3); Monocytes % (auto) 4.1 % (0.0-12.0); Neutrophils # (auto) 3.7 10 ^3/uL (1.6-8.6); Neutrophils % (auto) 64.9 % (37.0-80.0); Nucleated Red Blood Cells % 0.2 %; Platelet Count (auto) 225 10^3/uL (140-450); Red Blood Cells 4.99 10^6/uL (4.0-5.20); Red Cell Distribution Width 17.1 % (11.8-14.3); White Blood Cell 5.7 10^3/uL (4.4-10.8)
[2021-04-13 08:24] LABS: Alanine Aminotransferase 20 U/L (13-56); Albumin 3.1 g/dL (3.4-5.0); Anion Gap 4 (5-15); Aspartate Aminotransferase 16 U/L (15-37); BUN/Creatinine Ratio 12.5; Blood Urea Nitrogen 10 mg/dL (7-18); Calcium 8.5 mg/dL (8.5-10.1); Carbon Dioxide 28 mmol/L (21-32); Chloride 103 mmol/L (98-107); GFR African American 96 mL/min; GFR Non-African American 79 mL/min; Glucose 233 mg/dL (74-106); Sodium 135 mmol/L (136-145)
[2021-04-13 08:29] LABS: Alkaline Phosphatase 88 U/L (45-117); Bilirubin, Total 0.4 mg/dL (0.2-1.0); Total Protein 7.5 g/dL (6.4-8.2)
[2021-04-13] MEDS ORDERED: FUROSEMIDE 40 MG/4 ML VIAL IV ONE (09:00)
[2021-04-13] MEDS ORDERED: SPIRONOLACTONE 25 MG TAB PO ONE (09:00)
[2021-04-13 10:30] VITALS: BP 144/93
== END 2021-04-13 11:30 | disposition home or self-care (01) ==
LOC: ER 07:26
DX: R06.02 Shortness of breath (principal); E11.65 Type 2 diabetes mellitus with hyperglycemia; G89.4 Chronic pain syndrome; R09.89 Other specified symptoms and signs involving the circulatory and respiratory systems; R60.9 Edema, unspecified; E46 Unspecified protein-calorie malnutrition; Z68.43 Body mass index [BMI] 50.0-59.9, adult; I11.0 Hypertensive heart disease with heart failure; I50.9 Heart failure, unspecified; J44.9 Chronic obstructive pulmonary disease, unspecified
CPT/HCPCS: 36415; 71045; 80053; 83735; 83880; 84443; 84484; 85025; 93005; 96374; 99285; J1940

== ENCOUNTER 2021-05-21 12:32 | Emergency (ER) | payer MEDICAID ==
[~2021-05-21] VITALS: Ht 170.2 cm; Wt 176.9 kg
[2021-05-21] MEDS ORDERED: IPRATROPIUM BROM 0.5 MG/2.5ML INH SOL NEB ONE (13:45)
[2021-05-21] MEDS ORDERED: ALBUTEROL SULF 2.5 MG/0.5ML(0.5%) NEB SOLN NEB ONE (13:45)
[2021-05-21 13:52] LABS: Basophils # (auto) 0.1 10 ^3/uL (0-0.2); Basophils % (auto) 1.2 % (0.0-2.0); Eosinophils # (auto) 0.2 10 ^3/uL (0-0.8); Eosinophils % (auto) 3.1 % (0.0-7.0); Hematocrit 41.5 % (36.0-46.0); Hemoglobin 13.8 g/dL (12.2-16.2); Lymphocytes # (auto) 1.2 10 ^3/uL (0.4-5.4); Lymphocytes % (auto) 20.4 % (10.0-50.0); Mean Corpuscular Hemoglobin 28.6 pg (28.0-32.0); Mean Corpuscular Hgb Conc. 33.3 g/dL (32.0-36.0); Mean Corpuscular Volume 85.9 fL (80.0-100.0); Monocytes # (auto) 0.2 10 ^3/uL (0-1.3); Monocytes % (auto) 3.9 % (0.0-12.0); Neutrophils # (auto) 4.2 10 ^3/uL (1.6-8.6); Neutrophils % (auto) 71.4 % (37.0-80.0); Nucleated Red Blood Cells % 0.1 %; Red Blood Cells 4.83 10^6/uL (4.0-5.20); Red Cell Distribution Width 16.4 % (11.8-14.3); White Blood Cell 5.8 10^3/uL (4.4-10.8)
[2021-05-21 13:58] LABS: Albumin 3.1 g/dL (3.4-5.0); Anion Gap 3 (5-15); Blood Urea Nitrogen 8 mg/dL (7-18); Calcium 8.6 mg/dL (8.5-10.1); Carbon Dioxide 30 mmol/L (21-32); Chloride 106 mmol/L (98-107); Glucose 158 mg/dL (74-106); Potassium 3.8 mmol/L (3.5-5.1); Sodium 139 mmol/L (136-145)
[2021-05-21 14:05] LABS: Alanine Aminotransferase 16 U/L (13-56); Alkaline Phosphatase 77 U/L (45-117); Aspartate Aminotransferase 9 U/L (15-37); BUN/Creatinine Ratio 11.9; Bilirubin, Total 0.4 mg/dL (0.2-1.0); GFR African American 117 mL/min; GFR Non-African American 97 mL/min; Total Protein 7.2 g/dL (6.4-8.2)
[2021-05-21 17:53] VITALS: BP 166/55
[2021-05-21] MEDS ORDERED: FUROSEMIDE 40 MG/4 ML VIAL IV ONE (19:15)
[2021-05-21] MEDS ORDERED: LORazepam 0.5 MG TAB PO ONE (20:15)
== END 2021-05-21 20:08 | disposition home or self-care (01) ==
LOC: ER 12:32 → EDBD 12:32 → ER 20:08
DX: J44.1 Chronic obstructive pulmonary disease with (acute) exacerbation (principal); F41.1 Generalized anxiety disorder; I50.9 Heart failure, unspecified; E11.9 Type 2 diabetes mellitus without complications; Z98.890 Other specified postprocedural states
CPT/HCPCS: 36415; 71045; 80053; 83880; 84484; 85025; 85049; 93005; 94640; 99285; J7644

== ENCOUNTER 2021-09-07 06:19 | Emergency (ER) | payer MEDICAID ==
[~2021-09-07] VITALS: Ht 170.2 cm; Wt 172.4 kg
[2021-09-07 06:19] VITALS: BP 156/60
[2021-09-07 08:46] LABS: Urine Bacteria NONE SEEN /hpf (None Seen); Urine Blood Negative /uL (Negative); Urine Specific Gravity 1.022 (1.001-1.035); Urine WBC 7 /hpf (0 - 5)
[2021-09-07 09:20] LABS: Basophils # (auto) 0 10 ^3/uL (0-0.2); Basophils % (auto) 0.3 % (0.0-2.0); Eosinophils # (auto) 0.2 10 ^3/uL (0-0.8); Hematocrit 43.1 % (36.0-46.0); Lymphocytes # (auto) 1.5 10 ^3/uL (0.4-5.4); Lymphocytes % (auto) 25.6 % (10.0-50.0); Mean Corpuscular Hemoglobin 28.3 pg (28.0-32.0); Mean Corpuscular Hgb Conc. 32.6 g/dL (32.0-36.0); Mean Corpuscular Volume 86.8 fL (80.0-100.0); Monocytes # (auto) 0.3 10 ^3/uL (0-1.3); Monocytes % (auto) 5.5 % (0.0-12.0); Neutrophils # (auto) 3.8 10 ^3/uL (1.6-8.6); Neutrophils % (auto) 65.6 % (37.0-80.0); Nucleated Red Blood Cells % 0.1 %; Red Blood Cells 4.97 10^6/uL (4.0-5.20); Red Cell Distribution Width 16.4 % (11.8-14.3); White Blood Cell 5.8 10^3/uL (4.4-10.8)
[2021-09-07 09:36] LABS: Chloride 104 mmol/L (98-107); Sodium 141 mmol/L (136-145)
[2021-09-07 09:42] LABS: Alanine Aminotransferase 23 U/L (13-56); Anion Gap 7 (5-15); Aspartate Aminotransferase 20 U/L (15-37); BUN/Creatinine Ratio 11.4; Blood Urea Nitrogen 8 mg/dL (7-18); Calcium 8.7 mg/dL (8.5-10.1); Carbon Dioxide 30 mmol/L (21-32); GFR African American 111 mL/min; GFR Non-African American 92 mL/min; Glucose 170 mg/dL (74-106)
[2021-09-07 09:46] LABS: Alkaline Phosphatase 80 U/L (45-117); Bilirubin, Total 0.4 mg/dL (0.2-1.0); Total Protein 7.9 g/dL (6.4-8.2)
== END 2021-09-07 10:19 | disposition left against medical advice (07) ==
LOC: ER 06:19
DX: R60.0 Localized edema (principal); E11.65 Type 2 diabetes mellitus with hyperglycemia; E66.01 Morbid (severe) obesity due to excess calories; J44.9 Chronic obstructive pulmonary disease, unspecified; I50.9 Heart failure, unspecified; Z68.43 Body mass index [BMI] 50.0-59.9, adult
CPT/HCPCS: 36415; 71045; 80053; 81001; 83880; 84484; 85025; 93005

== ENCOUNTER 2021-11-14 09:38 | Emergency (ER) | payer MEDICAID ==
[~2021-11-14] VITALS: Ht 154.9 cm; Wt 181.4 kg
[2021-11-14] MEDS ORDERED: FUROSEMIDE 40 MG/4 ML VIAL IV ONE (10:45)
[2021-11-14 11:08] LABS: Basophils # (auto) 0.1 10 ^3/uL (0-0.2); Basophils % (auto) 1.7 % (0.0-2.0); Eosinophils # (auto) 0.1 10 ^3/uL (0-0.8); Eosinophils % (auto) 1.5 % (0.0-7.0); Hematocrit 43.8 % (36.0-46.0); Hemoglobin 13.8 g/dL (12.2-16.2); Lymphocytes # (auto) 1.3 10 ^3/uL (0.4-5.4); Lymphocytes % (auto) 23.5 % (10.0-50.0); Mean Corpuscular Hemoglobin 27.2 pg (28.0-32.0); Mean Corpuscular Hgb Conc. 31.5 g/dL (32.0-36.0); Mean Corpuscular Volume 86.3 fL (80.0-100.0); Monocytes # (auto) 0.3 10 ^3/uL (0-1.3); Monocytes % (auto) 4.9 % (0.0-12.0); Neutrophils # (auto) 3.7 10 ^3/uL (1.6-8.6); Neutrophils % (auto) 68.4 % (37.0-80.0); Nucleated Red Blood Cells % 0.1 %; Red Blood Cells 5.07 10^6/uL (4.0-5.20); Red Cell Distribution Width 16.2 % (11.8-14.3); White Blood Cell 5.5 10^3/uL (4.4-10.8)
[2021-11-14 11:18] LABS: Potassium 4.5 mmol/L (3.5-5.1)
[2021-11-14 11:26] LABS: Albumin 3.4 g/dL (3.4-5.0); BUN/Creatinine Ratio 15.2; Bilirubin, Total 0.3 mg/dL (0.2-1.0); Calcium 9.1 mg/dL (8.5-10.1); Total Protein 7.6 g/dL (6.4-8.2)
[2021-11-14 11:51] LABS: Urine Bacteria NONE SEEN /hpf (None Seen); Urine Blood Negative /uL (Negative); Urine Specific Gravity 1.016 (1.001-1.035); Urine WBC <1 /hpf (0 - 5)
[2021-11-14 18:10] VITALS: BP 141/76
== END 2021-11-14 18:14 | disposition home or self-care (01) ==
LOC: ER 09:38 → EDBD 09:38 → ER 18:14
DX: I50.9 Heart failure, unspecified (principal); R60.9 Edema, unspecified; E11.9 Type 2 diabetes mellitus without complications; J44.9 Chronic obstructive pulmonary disease, unspecified; Z88.8 Allergy status to other drugs, medicaments and biological substances; Z79.899 Other long term (current) drug therapy; Z20.822 Contact with and (suspected) exposure to COVID-19
CPT/HCPCS: 36415; 71045; 80053; 81001; 83880; 84484; 85025; 85379; 87426; 93005; 96374; 99285; J1940

== ENCOUNTER 2021-12-06 10:17 | Emergency (ER) | payer MEDICAID ==
[~2021-12-06] VITALS: Ht 167.6 cm; Wt 81.6 kg
[2021-12-06] MEDS ORDERED: FUROSEMIDE 40 MG/4 ML VIAL IV ONE (10:45)
[2021-12-06 12:12] LABS: Basophils # (auto) 0.1 10 ^3/uL (0-0.2); Basophils % (auto) 1.3 % (0.0-2.0); Eosinophils # (auto) 0.1 10 ^3/uL (0-0.8); Eosinophils % (auto) 2.4 % (0.0-7.0); Hematocrit 39.3 % (36.0-46.0); Hemoglobin 12.9 g/dL (12.2-16.2); Lymphocytes # (auto) 0.9 10 ^3/uL (0.4-5.4); Lymphocytes % (auto) 19.4 % (10.0-50.0); Mean Corpuscular Hemoglobin 28.3 pg (28.0-32.0); Mean Corpuscular Hgb Conc. 32.7 g/dL (32.0-36.0); Mean Corpuscular Volume 86.3 fL (80.0-100.0); Monocytes # (auto) 0.2 10 ^3/uL (0-1.3); Neutrophils # (auto) 3.4 10 ^3/uL (1.6-8.6); Neutrophils % (auto) 71.9 % (37.0-80.0); Nucleated Red Blood Cells % 0.1 %; Red Blood Cells 4.55 10^6/uL (4.0-5.20); Red Cell Distribution Width 16.2 % (11.8-14.3); White Blood Cell 4.8 10^3/uL (4.4-10.8)
[2021-12-06 12:26] LABS: Calcium 8.8 mg/dL (8.5-10.1); Potassium 4.2 mmol/L (3.5-5.1)
[2021-12-06 12:34] LABS: BUN/Creatinine Ratio 14.1; Bilirubin, Total 0.3 mg/dL (0.2-1.0); Total Protein 7.6 g/dL (6.4-8.2)
[2021-12-06 17:56] VITALS: BP 120/80
== END 2021-12-06 17:58 | disposition home or self-care (01) ==
LOC: EDBD 10:17 → ER 10:17
DX: R06.02 Shortness of breath (principal); R60.0 Localized edema; I50.9 Heart failure, unspecified; J44.9 Chronic obstructive pulmonary disease, unspecified; E11.9 Type 2 diabetes mellitus without complications; Z87.891 Personal history of nicotine dependence; Z20.822 Contact with and (suspected) exposure to COVID-19
CPT/HCPCS: 36415; 71045; 80053; 83880; 84484; 85025; 85379; 87426; 96374; 99284; J1940

== ENCOUNTER 2022-03-06 07:06 | Emergency (ER) | payer MEDICAID ==
[~2022-03-06] VITALS: Ht 170.2 cm; Wt 172.4 kg
[2022-03-06] MEDS ORDERED: SODIUM CHLORIDE 0.9% 1,000 ML IV ONE ×2 (07:45)
[2022-03-06] MEDS ORDERED: FUROSEMIDE 40 MG/4 ML VIAL IV ONE (08:00)
[2022-03-06] MEDS ORDERED: PANTOPRAZOLE 40 MG/10 ML VIAL INJ IV ONE (08:00)
[2022-03-06 08:08] LABS: Basophils # (auto) 0.1 10 ^3/uL (0-0.2); Basophils % (auto) 1.2 % (0.0-2.0); Eosinophils # (auto) 0.1 10 ^3/uL (0-0.8); Eosinophils % (auto) 2.4 % (0.0-7.0); Hematocrit 37.5 % (36.0-46.0); Lymphocytes # (auto) 0.8 10 ^3/uL (0.4-5.4); Lymphocytes % (auto) 14.4 % (10.0-50.0); Mean Corpuscular Hemoglobin 27.8 pg (28.0-32.0); Mean Corpuscular Hgb Conc. 31.9 g/dL (32.0-36.0); Mean Corpuscular Volume 87.4 fL (80.0-100.0); Monocytes # (auto) 0.3 10 ^3/uL (0-1.3); Monocytes % (auto) 5.4 % (0.0-12.0); Neutrophils # (auto) 4.5 10 ^3/uL (1.6-8.6); Neutrophils % (auto) 76.6 % (37.0-80.0); White Blood Cell 5.8 10^3/uL (4.4-10.8)
[2022-03-06 08:25] LABS: Calcium 8.7 mg/dL (8.5-10.1); INR 1.01 (0.9-1.15); Partial Thromboplastin Time 29.6 sec (23.6-33.0)
[2022-03-06 08:29] LABS: BUN/Creatinine Ratio 17.8; Bilirubin, Total 0.3 mg/dL (0.2-1.0); Total Protein 7.1 g/dL (6.4-8.2)
[2022-03-06] MEDS ORDERED: POTASSIUM EFFERVESENT TAB 25 MEQ PO ONE (08:45)
[2022-03-06 09:42] LABS: Urine Bacteria FEW /hpf (None Seen); Urine Blood 1+ /uL (Negative); Urine WBC 2 /hpf (0 - 5)
[2022-03-06] MEDS ORDERED: HYDR2.5C39 TOP (13:04)
[2022-03-06 13:22] VITALS: BP 101/71
== END 2022-03-06 13:44 | disposition home or self-care (01) ==
LOC: ER 07:06
DX: K92.2 Gastrointestinal hemorrhage, unspecified (principal); R60.0 Localized edema; I11.0 Hypertensive heart disease with heart failure; I50.9 Heart failure, unspecified; E11.9 Type 2 diabetes mellitus without complications; J44.9 Chronic obstructive pulmonary disease, unspecified; Z87.891 Personal history of nicotine dependence; Z79.4 Long term (current) use of insulin; Z79.2 Long term (current) use of antibiotics; Z79.899 Other long term (current) drug therapy; Z88.8 Allergy status to other drugs, medicaments and biological substances
CPT/HCPCS: 36415; 74176; 80053; 81001; 84484; 85025; 85610; 85730; 93005; 96374; 96375; 99285; C9113; J1940